=== PATIENT | male | born 1985 | race Caucasian/White ===

== ENCOUNTER 2025-01-11 13:56 | Outpatient (AMB) | payer BC, SELFPAY ==
--- NOTE | 2025-01-11 14:06 | A.OFFVIS_ITS ---
Intake Visit Reasons: Vasectomy Consult Intake Note: New Patient presents for initial visit for vasectomy consult Urology Medications: none Blood Thinner: none Children#2; Expected Children# 0 Boom Boss Required: No Accompanied by: Self / Same As Patient Allergies Penicillins [PENICILLINS] Allergy (Unknown, Unverified 01/11/25 22:17) RASH Medication List - Last Reconciled 01/11/25 by MARK Alvarez No Known Home Meds HPI Comments Details: Isidoro is a very pleasant 39-year-old male patient. He presents to the office today for - vasectomy evaluation Vasectomy evaluation The patient presents for vasectomy consultation.? 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 Patient education has been provided via AUA video, via printed information, risks of failure, recovery time, bruising and potential pain syndrome have been stressed Discussion today focused on the presence of vasectomy and the risks, benefits and alternatives that are available. Vasectomy as intended as a permanent form of control. Printed information and literature was provided to the patient. Overall there is a one in 2500 failure rate. This can occur at any time after vasectomy. Risks were discussed highlighting hematoma, spermatocele, epididymal congestion, development of sperm antibodies, and development of chronic pain estimated between 1-5%. The procedure was reviewed in detail. Anatomical diagrams of the male genitalia were used to explain the location of the vas deferens. The vas deferens will be transected, the proximal end will be cauterized, a metal clip would be applied to separate the 2 vas deferens ends. It was explained the procedure will be done in the office and takes approximately 10-15 minutes. Less common problems that arise with vasectomy include hematoma, bleeding, allergic reaction to anesthetic, epididymal infection, epididymal congestion, scrotal discomfort, spermatic leak, spermatic granuloma and the possibility of antisperm antibodies. He understands these risks and wishes to proceed. Consent was signed at the office today. He also understands that it takes 12 weeks for sperm to fully clear the system. He will need to provide a semen sample at 12 weeks and if this is not clear a 2nd sample at 16 weeks. Medical clearance to stop using protection will only be provided if he satisfies published criteria for sperm clearance. Review of Systems Const All systems reviewed & are unremarkable except as noted in HPI and below Physical Exam Const General: cooperative, healthy appearing, comfortable, no acute distress, well developed, alert and awake Orientation/consciousness: patient oriented x3 Limitations: no limitations HEENT Head: Yes normal to inspection, Yes normocephalic and Yes atraumatic Ears: hearing grossly normal bilaterally Eyes General: appearance normal, both eyes and all related structures Neck Neck: Yes normal visual inspection and Yes trachea midline Chest Chest palpation & inspection: normal inspection of the chest Resp Effort & Inspection: normal respiratory effort and able to speak in complete sentences Cardio Rate: regular rate GI Inspection: Yes normal to inspection General: Yes no CVA tenderness Back/Spine/Pelvis Back: no CVA tenderness Skin General skin exam: no rashes or lesions noted Neuro General: patient oriented x3 Extrem General: Yes normal to inspection Psych Appearance: grossly normal and well kempt Mental Status: mental status grossly normal Speech and movement: Normal speech and movement present and Clear speech present Affect: normal affect Attitude: cooperative Thought process: Normal thought process present Thought content: Normal thought content present Insight: Fair insight present (Psych) Judgement: Fair judgement present (Psych) Assessment & Plan Assessment & Plan (1) Anxiety about health: Code(s): R45.89 - Other symptoms and signs involving emotional state Category: Medical (2) Vasectomy evaluation: Code(s): Z30.09 - Encounter for other general counseling and advice on contraception Category: Medical Plan Vasectomy was discussed in detail; risks and benefits; as noted above. All questions were answered. Consent obtained. We discussed in office semen analysis verses fellows kit; information provided. Prescriptions provided; we discussed importance of taking medications as prescribed. Will schedule for in office vasectomy. Follow-up per doctor's orders; or sooner with any issues, concerns, and or questions. Medications: New tramadol Bring medication to office day of procedure 50 mg PO Q8H 3 days PRN 9 tabs 0RF pain diazepam (Valium) Bringing medication to office day of procedure 2 mg PO ONCE 1 day 2 tabs 0RF anxiety R45.89 - Other symptoms and signs involving emotional state Patient Instructions: The patient had an opportunity to ask questions regarding the treatment plan. All questions were answered. Physical exam, labs, and imaging were discussed and reviewed in detail. As well as risks, benefits, and discussion of treatment choices. No major barriers to understanding were identified. The patient expressed understanding and agreement with the above treatment plan. The patient was made aware they should contact our office by phone for worsening of their current condition, the appearance of new symptoms, or with any questions or concerns. Compliance is encouraged with any medications and follow up testing that is ordered. It is a privilege to be allowed the opportunity to participate in? your urological care.? Again, if you have any questions or concerns If you have any questions or concerns please do not hesitate to contact me. The office is [phone]. This note is constructed using voice recognition software. While every effort has been made to ensure accuracy hotel valet attendant errors may have been included. Yours sincerely, MARK Alvarez Coding Level of Care Code New Pt Level 4 (17503) Diagnoses Anxiety about health R45.89 Vasectomy evaluation Z30.09
--- OUTSIDE RECORDS SUMMARY | 2025-01-11 16:30 | XMS_ITS | Data Portability ---
Author Organization [facility], FP, EHC, OFFICE Address [address] [place] [address] Care Team Providers Care Braiding Machine Operator Name Role Phone RUDY KUMAR General Surgeon FERNY ALEJO Primary Care Provider Assessment Encounter Date Assessment Date Assessment LastModified by Organization Details LastModified Time 07/09/2023 07/09/2023 Patient agreed t o this visit via a secure telehealth platform. Patient understands this is a scheduled visit and the usual procedures with regard to billing and confidentiality apply. Patient was notified that the provider location is home Patient location: home During the visit the patient? s medical history and medical record were reviewed. The patient was notified to call our office for worsening or urgent symptoms. Not available 07/09/2023 10:17:15 10/27/2024 10/27/2024 Patient agreed t o this visit via phone or secure telehealth platform. Patient understands this is a scheduled visit and the usual procedures with regard to billing and confidentiality apply. Patient was notified that the provider location is [facility] Patient location: home During the visit the patient? s medical history and medical record were reviewed. The patient was notified to call our office for worsening or urgent symptoms. Not available 10/27/2024 09:44:54 Plan of Treatment Reminders Order Date Submit Date Provider Last Modified By Organization Details Last Modified Time Details Appointments None recorded. Lab None recorded. Referral general surgeon referral - mass on R chest wall 2023 024 [email or web address] Mcihelle Dobbins MD, [address], [place], [address], 4 16:42:45 gastroenter ologist referral - 38-year-old woke up with sharp pain in his left upper quadrant, went to ER by ambulance, labs wnl, and u/s pending; has had another episode earlier in june. 2022 023 [facility], [address] , [place], [address], 4 08:57:33 Procedures None recorded. Surgeries None recorded. Imaging US, abdomen, complete - 38 yo w ongoing mid to LUQ px for last month [address] [facility] (Imaging), [address] , [place], [address], 3 12:08:35 Medication Orders clindamycin 1 % topical gel 2024 025 [facility] [employer] #[id number], [address], [place], [id number], 5 15:48:18 benzonatate 100 mg capsule [email or web address] [employer] [employer] [facility] #[id number], [address], [place], [id number], 5 14:48:37 albuterol sulfate HFA 90 mcg/actuati on aerosol inhaler 2023 024 [facility] [employer] #[id number], [address], [place], [id number], 4 14:17:42 Patient TargetsNo targets recorded. Patient Instructions Encounter Date Encounter Id Patient Instructions Last Modified By Organization Details Last Modified Time 07/09/2023 [id number] .After a discussion of treatment and medication options, which included consideration of the best practices in medicine, a medical plan was provided. The patient's opinions and concerns were included in this treatment plan and goal. 1. For heartburn - avoid acidic and caffeinated beverages, avoid spicy foods, garlic, onions, smoking, chocolate, and peppermint. 2. Elevate head of bed 45 degrees, And no food intake 4 hrs prior to bedtime. 3. Having lemon w/ water can decrease acidity naturally. Not available 07/09/2023 10:26:12 12/23/2023 [id number] After a discussi on of treatment and medication options, which included consideration of the best practices in medicine, a medical plan was provided. The patient's opinions and concerns were included in this treatment plan and goal. 1. Continue w MVI; VITAMIN D 3 to 1000 I.U. in every day & calcium 1200 mg total in diet. If you can't get it in diet alone then it is ok to do a supplement of 500 mg of calcium per day, but dietary sources are BEST. 2. Work toward Cardiovascular exercise 30 mins 5 x per week. Walking at a fast pace is great. 3. Routine use of sunscreen and bug spray (tick checks when appropriate). 4. Try to work toward a Mediterranean Diet. For more information you can visit [email or web address] 5. Follow up in 1 year for wellness Not available 12/23/2023 14:07:23 Reason for Referral Food Scientist Referral for Abdominal pain 38-year-old woke up with sharp pain in his left upper quadrant, went to ER by ambulance, labs wnl, and u/s pending; has had another episode earlier in june. Referring Physician: Rox Corrigan, Psychiatry, Encounter Date: 07/09/2023 General Surgeon Referral for Lipoma of skin and subcutaneous tissue of trunk mass on R chest wall Referring Physician: Rox Corrigan, Psychiatry, Encounter Date: 12/23/2023 Results Created Date Observation Date Name Description Value Unit Range Abnormal Flag Note LastModifiedBy Organization Detail LastModifiedTime 10/12/19 24 10/13/2023 ANATO OSCAR PATHO LOGY path report Cynthia luis eduardo [facility] [address] [place] [address] Lab Direc tor: Felicia mejia MD Surgi miroslava Patho logy Repor t Acces kiersten #: [id number] FINAL PATHO LOGIC DIAGN OSIS: A. STOMA CH ANTRU M, BIOPS Y: No patho logic abnor malit y. B. ESOPH OTILIA, BIOPS Y: Ama l squam ous mucos a. Danielle ctron icall y Mary d Out By Michael caruso MD By his/h er signlemuel ture above , the patho logis t liste d as charlie skelton the Final Diagn osis certi fies that he/sh e has perso sha revie wed this case and confi rmed or corre cted the diagn osis. CLINI MIROSLAVA HISTO RY Upper abdom inal pain SPECI MENS SUBMI TTED: A: STOMA CH ANTRU M, BIOPS Y B: ESOPH OTILIA, BIOPS Y GROSS DESCR IPTIO N A. STOMA CH ANTRU M, BIOPS Y: Forma matt: 2 fragm ents 0.2 and 0.3 cm, entir cristopher submi tted A1. B. ESOPH OTILIA, BIOPS Y: Forma matt: 2 fragm ents 0.1 cm each, entir cristopher submi tted B1. DN 024 Gross ing Staff : MARIA INES obrien Name: BASIA SAMSON : [birth year] (Age: 38) Sex: M 8 Insti tutio n: [facility] Locat ion: [facility] Date of Opera tion: Date of Acces kiersten: Repor pedro: 12:36 Resul ts To: Reza medina MD, AB Norah Corrigan NP Gupta y Medic al Speci altie s Not Available [facility] (Outpatient) [address] [place], [address], 10/13/2023 22:12:01 02/14/20 24 02/16/2024 ANATO OSCAR PATHO LOGY path report Cooldelfina y [facility] [address] [place] [address] Lab Direc tor: Felicia mejia MD Surgi miroslava Patho logy Repor t Acces kiersten #: [id number] FINAL PATHO LOGIC DIAGN OSIS: SOFT TISSU E, RIGHT ABDOM INAL WALL, EXCIS ION: Lipom a. Danielle ctron icall y Mary d Out By Felicia mejia MD By his/h er signa ture above , the patho logis t liste d as charlie skelton the Final Diagn osis certi fies that he/sh e has perso sha revie wed this case and confi rmed or corre cted the diagn osis. CLINI MIROSLAVA HISTO RY Lipom a of abdom inal wall, mass. SPECI MENS SUBMI TTED: A: SOFT TISSU E, RIGHT ABDOM INAL WALL, EXCIS ION GROSS DESCR IPTIO N SOFT TISSU E, RIGHT ABDOM INAL WALL, EXCIS ION: Recei renea in forma matt is a singl e piece of multi lobul ated yello w soft tissu e which weigh s 8 g and measu res 4.1 x 3.5 x 1 cm. Secti oning revea ls unifo rmly yello w and soft cut surfa kyaw. No focal areas of indur ation , hemor rhage or necro sis is noted . Repre senta tive secti ons in block A1. LT Gross ing Staff : DEBORAH obrien Name: BASIA SAMSON : [birth year] (Age: 38) Sex: M 8 Insti tutio n: [facility] Locat ion: [facility] ATW Date of Opera tion: Date of Acces kiersten: 024 Repor pedro: 2023 16:05 Resul ts To: Rudy conteh MS, BS Norah Corrigan DESKTOP OPERATOR Not Available [facility] (Outpatient) [address] [place], [address], 02/16/2024 16:52:22 12/22/19 25 12/21/2024 CBC WBC 4.60 K/? ? ?L 4.23-9 .07 Not Available [address], [address], 12/21/2024 10:17:55 12/22/1912/21/2024 CBC RBC 5.35 M/? ? ?L 4.63-6 .08 Not Available [address], [address], 12/21/2024 10:17:55 12/22/1912/21/2024 CBC HGB 15.6 g/dL 13.7-1 7.5 Not Available [address], [address], 12/21/2024 10:17:55 12/22/1912/21/2024 CBC HCT 46.3 % 40.1-5 1.0 Not Available [address], [address], 12/21/2024 10:17:55 12/22/1912/21/2024 CBC MCV 86.5 fL 79.0-9 2.2 Not Available [address], [address], 12/21/2024 10:17:55 12/22/1912/21/2024 CBC MCH 29.2 pg 25.7-3 2.2 Not Available [address], [address], 12/21/2024 10:17:55 12/22/1912/21/2024 CBC MCHC 33.7 g/dL 32.3-3 6.5 Not Available [address], [address], 12/21/2024 10:17:55 12/22/1912/21/2024 CBC plt 229 K/? ? ?L 163-33 7 Not Available [address], [address], 12/21/2024 10:17:55 12/22/19 25 12/21/2024 CBC MPV 10.6 fL 9.4-12 .4 Not Available [address], [address], 12/21/2024 10:17:55 12/22/19 25 12/21/2024 CBC neut% 55.0 % 34.0-6 7.9 Not Available [address], [address], 12/21/2024 10:17:55 12/22/19 25 12/21/2024 CBC neut# 2.53 1.78-5 .38 Not Available [address], [address], 12/21/2024 10:17:55 12/22/19 25 12/21/2024 CBC lymph % 23.9 % 21.8-5 3.1 Not Available [address], [address], 12/21/2024 10:17:55 12/22/19 25 12/21/2024 CBC lymph # 1.10 K/? ? ?L 1.32-3 .57 low Not Available [address], [address], 12/21/2024 10:17:55 12/22/1912/21/2024 CBC mono% 10.7 % 5.3-12 .2 Not Available [address], [address], 12/21/2024 10:17:55 12/22/19 25 12/21/2024 CBC mono# 0.49 0.30-0 .82 Not Available [address], [address], 12/21/2024 10:17:55 12/22/19 25 12/21/2024 CBC eo% 8.9 % 0.8-7. 0 high Not Available [address], [address], 12/21/2024 10:17:55 12/22/19 25 12/21/2024 CBC eo# 0.41 0.04-0 .54 Not Available [address], [address], 12/21/2024 10:17:55 12/22/19 25 12/21/2024 CBC baso% 1.1 % 0.2-1. 2 Not Available [address], [address], 12/21/2024 10:17:55 12/22/1912/21/2024 CBC baso# 0.05 0.00-0 .08 Not Available [address], [address], 12/21/2024 10:17:55 12/22/1912/21/2024 CBC RDW-CV 12.5 % 11.6-1 4.4 Not Available [address], [address], 12/21/2024 10:17:55 12/22/1912/21/2024 CBC Ig% 0.400 % 0.000- 1.500 Ig % >0.5 Indic ates possi ble Left Shift Not Available [address], [address], 12/21/2024 10:17:55 12/22/1912/21/2024 CBC Ig# 0.020 0.000- 0.093 Not Available [address], [address], 12/21/2024 10:17:55 12/22/1912/21/2024 CBC NRBC% 0.0 % 0.0-0. 2 Not Available [address], [address], 12/21/2024 10:17:55 12/22/1912/21/2024 CBC NRBC# 0.000 0.000- 0.012 Not Available [address], [address], 12/21/2024 10:17:55 12/22/1912/25/2024 BASIC METAB OLIC PANEL glucose 93 mg/dL 70-100 Not Available [address], [address], 12/25/2024 11:33:50 12/22/19 25 12/25/2024 BASIC METAB OLIC PANEL BUN 19 mg/dL 7-18 high Not Available [address], [address], 12/25/2024 11:33:50 12/22/1912/25/2024 BASIC METAB OLIC PANEL creatinine 1.1 mg/dL 0.8-1. 3 Not Available [address], [address], 12/25/2024 11:33:50 12/22/19 25 12/25/2024 BASIC METAB OLIC PANEL B/C 17.3 ratio Not Available [address], [address], 12/25/2024 11:33:50 12/22/1912/25/2024 BASIC METAB OLIC PANEL GFR >=60ML /MIN mL/mi n normal >=60m L/min - Ama l or midly reduc ed <60mL /min- Decre ased kidne y funct ion <15mL /min - Kidne y failu re [facility] calcu lates estim ated Glome rular Filtr ation Rate (eGFR ) using the Chron ic Kidne y Disea se Epide miolo gy Colla borat ion (CKD- EPI) Equat ion (Orville conteh et. al 2020) as recom lyle d by the Natio nal Kidne y Found ation . eGFR is based on age, serum creat inine , and sex. CKD-E PI does not calcu late eGFR by race, does not apply to child mirella (age <18 years ), and shoul d not be used in pregn karin. Not Available [address], [address], 12/25/2024 11:33:50 12/22/19 25 12/25/2024 BASIC METAB OLIC PANEL sodium 141 mmol/ L 136-14 5 Not Available [address], [address], 12/25/2024 11:33:50 12/22/19 25 12/25/2024 BASIC METAB OLIC PANEL potassium 4.6 mmol/ L 3.5-5. 1 Not Available [address], [address], 12/25/2024 11:33:50 12/22/19 25 12/25/2024 BASIC METAB OLIC PANEL chloride 104 mmol/ L 96-107 Not Available [address], [address], 12/25/2024 11:33:50 12/22/19 25 12/25/2024 BASIC METAB OLIC PANEL anion gap 12.6 5.0-15 .0 Not Available [address], [address], 12/25/2024 11:33:50 12/22/19 25 12/25/2024 BASIC METAB OLIC PANEL CO2 24 mmol/ L 21-32 Not Available [address], [address], 12/25/2024 11:33:50 12/22/19 25 12/25/2024 BASIC METAB OLIC PANEL calcium 8.9 mg/dL 8.5-10 .3 Not Available [address], [address], 12/25/2024 11:33:50 12/22/1912/25/2024 LIPID PANEL cholesterol 222 mg/dL <200 mg/dl Jules able 200-2 39 mg/dl Borde rline High >240 mg/dl High Not Available [address], [address], 12/25/2024 11:33:51 12/22/1912/25/2024 LIPID PANEL triglyceride s 59 mg/dL <150 mg/dL Ama l 150-1 99 mg/dL Borde rline High 200-4 99 mg/dL High >500 mg/dL Very High Not Available [address], [address], 12/25/2024 11:33:51 12/22/1912/25/2024 LIPID PANEL direct HDL 57 mg/dL <40 mg/dl - Major Risk for CHD >60 mg/dl - Negat paul Risk for CHD Not Available [address], [address], 12/25/2024 11:33:51 12/22/1912/25/2024 LDL - CALCU LATED LDL - calculated 153 RISK CATEG ORY LDL GOAL _ CHD or CHD Risk Equiv alent s <100 mg/dl (10-y ear risk >20%) 2+ Risk Facto rs <130 mg/dl (10-y ear risk <= 20%) 0-1 Risk Facto r? <160 mg/dl ? Almos t all peopl e with 0-1 risk facto r have a 10 year risk <10%, thus 10 year risk asses ment in peopl e with 0-1 risk facto r is not neces colton. Not Available [address], [address], 12/25/2024 11:33:52 07/13/20 23 07/13/2023 US, abdom en, compl ete CLINIC AL HISTOR Y: Abdome n pain TECHNI QUE: 2D sonogr aphy of the abdome n perfor med. COMPAR ANGELLA: None. FINDIN GS: The aorta and IVC are normal sized. The liver is normal in echote xture. There are no solid liver masses or intrah epatic duct dilata tion. The gallbl adder is thin-w alled. There are no gallst ones and there is no perich olecys tic fluid. The patien t is not focall y tender during examin ation of the gallbl adder. Common duct: 3 mm Right kidney 10.8 x 4.6 cm. The right kidney has no visual ized stones , solid masses , or hydron ephros is. Left kidney is 4.7 cm. The left kidney has no visual ized stones , solid masses , or hydron ephros is. There is no ascite s. The visual ized portio ns of the pancre as are normal . There is some limita tion due to overly ing bowel gas. Spleen 11.2 cm. The spleen is unrema rkable . IMPRES KIERSTEN: Unrema rkable comple te abdomi nal ultras ound. Readin g Physic hillary: Korey Bernal [facility]) [address], [place], [address], 07/19/2023 11:45:35 Result Notes None recorded. Procedures Surgical History Date Name Laterality Status Provider Name and Address Organization Details Recorded Time 4 Bryson - EGD completed Reza Massey MD [address] [place] [address], [id number] 10/12/2023 11:19:25 Imaging Results None recorded. Procedure Notes None recorded. Medical Equipment None Reported. Allergies Allergen ID Allergen Name Allergen Category Reaction Reaction Severity Criticality Documentation Date Start Date Code Code System Note Provider Name and Address Organization Details Recorded Time 993109 Product containin g penicilli n (product) medicatio n rash Not available Not available 10/12/2023 68054 8001 SNOMED MICHELE Jo, [facility] 4 09:04:10 Medications Name Sig Start Date Stop Date Status Note LastModified by Organization Details LastModified Time cetirizin e 10 mg tablet Take 1 tablet every day by oral route. active seasonal ly Not Available Not Available Not Available prednison e 20 mg tablet 05/02 completed finished 04-28-18 Not Available Not Available Not Available fexofenad ine 180 mg tablet Take 1 tablet every day by oral route. 04/30 completed not currentl y using 01/15/20 Not Available Not Available Not Available omeprazol e 40 mg capsule,d elayed release Take 1 capsule twice a day by oral route for 30 days. 06/29 completed Not Available Not Available Not Available triamcino lone acetonide 0.1 % topical cream TROY THIN LAYER EXT AA BID FOR 14 DAYS 12/26 completed pt not taking Not Available Not Available Not Available clindamyc in 1 % topical gel APPLY THIN LAYER TOPICALL Y TO THE AFFECTED AREA TWICE DAILY 12/26 completed not using 12/26/24 Not Available Not Available Not Available benzonata te 100 mg capsule TAKE 1 TO 2 CAPSULES BY MOUTH THREE TIMES DAILY NEEDED FOR COUGH 12/26 completed not taking 12/26/24 ds Not Available Not Available Not Available flunisoli de 25 mcg (0.025 %) nasal spray [place] Mar 2 sprays twice a day by intranas al route for 30 days. 06/16 completed Not Available Not Available Not Available omeprazol e 20 mg capsule,d elayed release take 1 capsule by mouth once daily 12/26 completed PRN Not taking 07/09/23 SD Not Available Not Available Not Available monteluka st 10 mg tablet TAKE 1 TABLET BY MOUTH ONCE A DAY 04/30 completed irregula rly 01/15/20 Not Available Not Available Not Available albuterol sulfate HFA 90 mcg/actua tion aerosol inhaler INHALE 2 PUFFS BY MOUTH EVERY 4 HOURS active Not Available Not Available No t Available piroxicam 20 mg capsule TAKE ONE CAPSULE BY MOUTH EVERY DAY WITH FOOD NEEDED FOR PAIN active Not Available Not Available No t Available fluticaso ne propionat e 50 mcg/actua tion nasal spray,gianluca pension [place] 1 spray every day by intranas al route for 30 days. 04/30 completed Has, does not use 10/18/18 Not Available Not Available Not Available doxycycli ne hyclate 100 mg tablet 04/23 completed Not Available Not Available Not Available Flovent HFA 110 mcg/actua tion aerosol inhaler Inhale 1 puff twice a day by inhalati on route. 10/27 completed no longer using 0 Not Available Not Available Not Available Virginia-D 24 Hour 180 mg-240 mg tablet,ex tended release TK 1 T PO D PRN 10/18 completed Not Available Not Available Not Available multivita min active Not Available Not Available Not Available omeprazol e 20 mg tablet,de layed release Take 1 tablet every day by oral route before meals for 14 days. 05/31 completed Not Available Not Available Not Available ProChambe r 10/18 completed Not Available Not Available Not Available Afluria 3786-9450 (PF) 45 mcg(15 mcg x 3)/0.5 mL intramusc ular syringe 12/02 completed Not Available Not Available Not Available Fish Oil 1,000 mg (120 mg-180 mg) capsule Take by oral route. active Not Available Not Available No t Available Afluria 8863-5875 (PF) 45 mcg(15 mcg x 3)/0.5 mL intramusc ular syringe inject 0.5 millilit er intramus cularly 12/07 completed Not Available Not Available Not Available Flucelvax Quad (PF) 60 mcg (15 mcg x 4)/0.5 mL IM syringe inject 0.5 millilit ers intramus cularly 01/14 completed Not Available Not Available Not Available Vitals None Recorded Social History Question Answer Notes LastModified by Organizat ion Details LastModified Time Do You Wear A Helmet When Biking? No N/a Information not available 08/05/2015 What Is Your Level Of Caffeine Consumption? Moderate 1 Cup Of Coffee Daily Information not available 01/24/2014 How Much Tobacco Do You Chew? None Information not available 08/05/2015 What Type Of Diet Are You Following? REGULAR Information not available 01/24/2014 Which Illicit Or Recreational Drugs Have You Used? Denies Information not available 10/03/2014 How Many Days In The Past Year Have You Had A Heavy Drinking Consumption (4+ Female, 5+ Male)? 1 [email or web address] Information not available 10/18/2018 Are There Any Guns Present In Your Home? No Information not available 08/05/2015 Do You Use Insect Repellent Routinely? No Information not available 12/23/2023 Live Alone Or With Others? With Others Information not available 01/24/2014 Patient Has Health Care Proxy Signed And In Chart Yes Next Of Kin: Naya Farmer [email or web address] Information not available 10/19/2018 Marital Status Naya Informatio n not available 01/24/2014 Mosquito Repellent Used Routinely Yes Information not available 01/24/2014 What Was The Date Of Your Most Recent Tobacco Screening? 12/26/2024 [email or web address] Information not available 12/26/2024 How Many Children Do You Have? 1 Curtis 09/12/17 Information not available 04/23/2017 Do You Use Your Seat Belt Or Car Seat Routinely? Yes Information not available 12/23/2023 Seat Belts Used Routinely Yes Information not available 01/24/2014 Are You Sexually Active? Yes Information not available 04/23/2017 Smoke Alarm In Home Yes Information not available 01/24/2014 Do You Have Smoke And Carbon Monoxide Detectors In Your Home? Yes Information not available 12/23/2023 Are You Passively Exposed To Smoke? No Information not available 12/23/2023 How Much Tobacco Do You Smoke? No Information not available 10/03/2014 General Stress Level Medium Information not available 10/03/2014 Do You Use Sunscreen Routinely? Yes Information not available 01/24/2014 Sex: Male Functional Status Question Answer Note LastModified by Organizat ion Details LastModified Time What is your level of alcohol consumption? Moderate x4-6 drink/we ek Information not available 01/24/2014 Do you or have you ever used smokeless tobacco? Never used smokeless tobacco [email or web address] Information not available 11/25/2020 What is your occupation? [employer] work Information not available 04/23/2017 Do you or have you ever used e-cigarettes or vape? Never used electronic cigarettes [email or web address] Information not available 11/25/2020 What is your exercise level? Occasional Information not available 10/03/2014 Mental Status None recorded. Family History Relationship Description Onset Age of this Age Resolved Age Notes LastModified by Organization Details LastModified Time Paternal Grandfather Malignant neoplastic disease [email or web address] Not available 2014 11:30:37 Father Family illness [email or web address] Not available 2014 11:30:37 Mother Diabetes mellitus [email or web address] Not available 2014 11:30:37 Mother Malignant lymphoma [email or web address] Not available 2014 11:30:37 Paternal Uncle Malignant neoplastic disease [email or web address] Not available 2014 11:30:37 Sister Congestive heart failure 35 [email or web address] Not available 12/08 14:45:48 Notes:Sister a/w. No colon o r breast ca. No CAD Mother:Marginal B-Cell Lymphoma, late thirties Diabetes, age 47 Pat grpa Bladder cancer, age 71 smoker Mothers Aunt: Bladder cancer, twice, unsure of age Mothers Brother: Bladder cancer, early 50's smoked Mothers Sister and uncle: Diabetes, early 50'a Medical History Condition Response Allergies Y Past Encounters Encounter ID Performer Location Encounter Start Date Encounter Closed Date Diagnosis/Indication Diagnosis SNOMED-CT Code Diagnosis ICD10 Code Diagnosis Note [id number] MARK Mcgraw, [facility], OFFICE [address] [place] [id number] 01/24/2014 14:23:08 01/24/2014 15:17:37 [id number] Daisy LUU, [facility], OFFICE [address] [place] [phone] 03/01/2014 14:39:45 03/01/2014 17:02:15 [id number] MARK Mcgraw, [facility], OFFICE [address] [place] [id number] 03/27/2014 11:36:09 03/27/2014 11:57:45 [id number] MARK Mcgraw, [facility], OFFICE [address] [place] [id number] 05/17/2014 12:34:22 05/17/2014 14:07:58 [id number] MARK Mcgraw [facility], OFFICE [address] [place] [id number] 05/30/2014 16:41:15 06/01/2014 10:56:53 [id number] Robin Ruiz MD Sports Medicine, [facility] [address] [facility] [place] [address] 10/03/2014 10:23:13 10/03/2014 13:37:36 [id number] Jacques hCaudhary , PT Physical Therapy, [facility] [address] [place] [address] 10/10/2014 14:42:30 10/11/2014 14:06:20 [id number] Jacques Chaudhary , PT Physical Therapy, [facility] [address] [place] [address] 10/29/2014 15:56:32 10/31/2014 07:27:35 [id number] Masoud Slaughter MD , [facility], OFFICE [address] [facility] [place] [facility] [place] [address] 11/05/2014 14:37:51 11/05/2014 15:47:17 [id number] Daisy LUU, [facility], OFFICE [address] [facility] [place] [facility] [place] [address] 08/05/2015 09:57:22 08/05/2015 10:47:19 [id number] Masoud Slaughter MD , [facility], OFFICE [address] [facility] [address] [place] [address] 04/21/2016 13:37:54 04/21/2016 14:09:49 [id number] CHRIS McgrawP-ANY , [facility], OFFICE [address] [facility] [place] [facility] [place] [address] 12/02/2016 10:48:34 12/02/2016 11:39:41 [id number] MD JUS Ortega, [facility], OFFICE [address] [facility] [place] [facility] [place] [address] 04/23/2017 08:32:40 04/23/2017 09:27:18 [id number] Syl Shannon NP , [facility], OFFICE [address] [facility] [place] [facility] [place] [address] 12/07/2017 15:13:16 12/07/2017 17:47:41 [id number] Daisy LUU, [facility], OFFICE [address] [facility] [place] [facility] [place] [address] 04/28/2018 07:53:34 04/28/2018 09:48:43 [id number] Reza Cadet MD , [facility], OFFICE [address] [facility] [place] [facility] [place] [address] 05/02/2018 17:13:15 05/03/2018 09:13:50 [id number] Reza Cadet MD , [facility], OFFICE [address] [facility] [place] [facility] [place] [address] 10/18/2018 15:41:55 10/18/2018 16:34:42 [id number] Reza Cadet MD , [facility], OFFICE [address] [facility] [place] [facility] [place] [address] 01/15/2020 09:36:55 01/16/2020 09:05:07 [id number] Reza Cadet MD , [facility], OFFICE [address] [facility] [place] [facility] [place] [address] 04/30/2020 13:41:26 05/02/2020 08:05:50 [id number] Masoud Slaughter MD , [facility], OFFICE [address] [facility] [place] [facility] [place] [address] 11/25/2020 11:53:27 11/27/2020 16:07:09 [id number] Jamila Boles Ms, PT Physical Therapy, [facility] [address] [facility] [place] [facility] [place] [address] 12/19/2020 07:27:35 12/19/2020 10:16:46 [id number] Jamila Bloes Ms, PT Physical Therapy, [facility] [address] [facility] [place] [facility] [place] [address] 12/25/2020 11:30:54 12/25/2020 13:27:36 [id number] Jamila Boles Ms, PT Physical Therapy, [facility] [address] [facility] [place] [facility] [place] [address] 01/02/2021 11:56:09 01/03/2021 07:30:03 [id number] Reza Cadet MD FP, [facility], OFFICE [address] [facility] [place] [facility] [place] [address] 10/27/2021 14:22:58 10/27/2021 15:09:15 [id number] Reza Cadet MD , [facility], OFFICE [address] [place] [address] 10/29/2022 13:21:27 10/29/2022 14:01:02 [id number] Reza Cadet MD , [facility], OFFICE [address] [place] [address] 07/09/2023 08:29:52 07/13/2023 08:52:47 [id number] Reza Massey MD Endoscopy , [address] [address] 10/12/2023 08:49:48 10/12/2023 13:25:36 [id number] Reza Cadet MD , [facility], OFFICE [address] [place] [address] 12/23/2023 13:19:52 12/23/2023 14:12:29 [id number] TEJA BENTON PA-C , [facility], OFFICE [address] [place] [address] 08/08/2024 13:55:09 08/08/2024 16:56:13 [id number] Rox Corrigan NP , [facility], OFFICE [address] [place] [address] 10/27/2024 09:40:37 10/27/2024 12:09:16 [id number] Masoud Slaughter MD , [facility], OFFICE [address] [place] [address] 12/26/2024 14:14:12 12/26/2024 16:43:55 Health Concerns Section Related Observation LastModified by Organization Detai ls LastModified Time None Recorded Concern Status LastModified by Organization Details LastModified Time None Recorded Advance Directives Directive None Recorded Payers Encounter Date Sequence Insurance Name Policy Number Policy Cash Covered Member ID Cash Member ID Guarantor Name 07/09/2023 1 [employer] (PPO) [id number] Isidoro Farmer [id number] Isidoro Farmer 12/23/2023 1 [employer] (PPO) [id number] Isidoro Farmer [id number] Isidoro Farmer 08/08/2024 1 SURAJ (PPO) [id number] Isidoro Farmer [id number] Isidoro Farmer 10/27/2024 1 SURAJ (PPO) [id number] Isidoro Farmer [id number] Isidoro Farmer 12/26/2024 1 SURAJ (PPO) [id number] Isidoro Farmer [id number] Isidoro Farmer
== END 2025-01-11 14:54 | disposition home or self-care (01) ==
LOC: HO.HUSH 13:56
PROVIDERS: Visit Provider Nurse Practitioner Family
DX: R45.89 Other symptoms and signs involving emotional state (principal); Z30.09 Encounter for other general counseling and advice on contraception
CPT/HCPCS: 99204

== ENCOUNTER 2025-04-25 15:00 | Outpatient (AMB) | payer BC, SELFPAY ==
--- NOTE | 2025-04-25 15:06 | A.OFFVIS_ITS ---
Intake Visit Reasons: vasectomy Intake Note: New Patient presents for initial visit for vasectomy Urology Medications: none Blood Thinner: none Children#2; Expected Children# 0 Medical Care Administrator Required: No Accompanied by: Self / Same As Patient Allergies Penicillins (PENICILLINS) Allergy (Unknown, Verified 04/25/25 15:07) RASH HPI Comments Details: Isidoro is a very pleasant 39-year-old male patient. He presents to the office today for - vasectomy procedure Vasectomy procedure The patient presents for vasectomy procedure.? He is currently He has fathered 2 children, with a single partner The youngest child is 5 years old His partner is aware and permissive for a vasectomy Current form of control is her months Current employment is a corporate planning manager at [employer] Procedures Vasectomy Details: Preoperative diagnosis: Anxiety regarding Postoperative diagnosis: Anxiety regarding unplanned Procedure: Bilateral vasectomy Informed consent had been completed. Preoperative and postoperative instructions were provided to the patient. The patient has transportation home identified at the completion of the procedure. Anti-anxiolytic prescription medication had been taken after consent verification and all questions answered. A limited amount of pain medication was also provided. The penis was elevated using a rubber band that was attached to the patient's shirt. Both vasa were palpated through the skin using a 3 finger technique and the penoscrotal junction was prepped with Betadine. After Betadine application the left vas was elevated using a 3 finger grasping technique. 1% lidocaine was used to create a subdermal bubble. Further anesthetic was then advanced using the 25-gauge needle along the vasa in a proximal fashion. Approximately 2 minutes were allowed to for local anesthetic uptake. Using the sharp spreading instrument the scrotal skin was spread longitudinally in line with the vasa until the subdermal layer had been divided. The vasa was then elevated from the scrotum using a ring clamp. Care was taken to elevate the superior portion of the vasa by rotating the ring clamp in a caudad direction. The battery powered cautery was used to divide the vasal sheath in a longitudinal direction on the exposed vasa and to strip the vasal sheath from the vasa. The sharp spreading instrument was used to further expose the vas within the vasal sheath. A 2nd narrower ring clamp was placed on the exposed vas and used to lift the vas from the vasal sheath. The cautery was used to divide vasal attachments and allow full exposure of a small loop of vasa. The sharp spreading instrument was then used to create a tunnel under the vasa and spread to allow the blood vessels of the vasa to retract from the vasa. A mosquito clamp was placed on the proximal portion of the vas. The battery- powered cautery was used to make a partial division in the proximal vas and then inserted in order to cauterize the proximal end of the vas. This was then cut and allowed to retract into the vasal sheath. The mosquito was then used to twist the vasa 180 degrees creating a fascial interposition as the proximal portion of the vas retracted in the vasal sheath. Using a 4-0 chromic suture the fascial interposition was sutured closed. The distal portion of the vas was then cut in order to obtain a segment of vasa. An open distal vas is preferred for minimizing postprocedure pain. The vasa were allowed to retract back into the scrotum. A small snap was then used to approximate the skin edges and allow hemostasis without placement of a suture. A similar procedure was repeated on the right side. He tolerated the procedure well. Triple antibiotic was applied. A gauze was applied. An ice pack was applied to assist with minimizing swelling. Postoperati ve instructions were confirmed. He understands the need to continue to use control methods. A semen sample should be brought for inspection under the microscope in 10-12 weeks. CPT 54799 Vasectomy performed by: Freddy Kemp Time out checklist: patient, procedure, site marked/identified, positioning of patient, supplies available, allergies confirmed and team agrees on procedure Anesthetic used: Lidocaine 1.0% with epinephrine Specimens: vas segments not sent to pathology 88846 - Vasectomy Office Meds lidocaine (PF) 10 mg/mL (1 %) injection solution Performing Provider: Freddy Kemp MD Performing Location: [facility] [place] [facility] Administered by: Kathleen Garay RN on 04/25/25 15:07 Dose Route Admin Location Dispensed Lot Number Expiration Date NDC Byproducts Pump Operator 2 mL Infiltration 10 mL Total Dispensed Waste 10 mL 0 % Assessment & Plan Assessment & Plan (1) Vasectomy evaluation: Code(s): Z30.09 - Encounter for other general counseling and advice on contraception Category: Medical (2) Anxiety about health: Code(s): R45.89 - Other symptoms and signs involving emotional state Category: Medical Plan Twelve week follow-up check semen analysis Orders: Orders AMB Vasectomy Today R45.89 - Other symptoms and signs involving emotional state Patient Instructions: This note is constructed using voice recognition software. While every effort has been made to ensure accuracy flatware maker errors may have been included. Imaging studies, laboratory and physical exam results were discussed and reviewed in detail. No major barriers to patient understanding were identified. An opportunity to ask questions regarding the treatment plan was provided. All questions were answered. The patient expressed understanding and agreement with the above treatment plan. The patient is aware they should contact our office by phone for worsening of their current condition or the appearance of new urologic symptoms. Compliance is encouraged with any medications and followup testing that is ordered. It is a privilege to participate in the urologic care of your patient. If you have any questions or concerns regarding treatment for the above conditions, or other urologic issues, please do not hesitate to contact me. The office telephone contact is [phone]. Sincerely, Dr Freddy Kemp MD, [facility] - Urology Compassionate Specialist Care for the Genitourinary System Coding Level of Care Code Procedure Only Diagnoses Vasectomy evaluation Z30.09 Anxiety about health R45.89 CPT Codes Office Procedure - CPT: 38079 - Vasectomy ([id number])
--- OUTSIDE RECORDS SUMMARY | 2025-04-25 18:33 | XMS_ITS | Encounter Summary ---
Author Organization [facility] Address [address] [place] [address] Phone Care Team Providers Care Quahogger Name Role Phone Pcp, Unknown Primary Care Provider Rox Heaton W[employer]ANT SUPERVISOR Primary Care Provider [phone] Encounter Details Date Type Department Care Team (Latest Contact Info) Description 09/09/2023 Transcribe Orders Virtual Department [address] [place] [address] Krissy Clay PA [address] [place] [address] Gastroesophageal reflux disease, unspecified whether esophagitis present (Primary Dx); Generalized abdominal pain Social History Tobacco Use Types Packs/Day Years Used Date Smoking Tobacco: Never Assessed Education Answer Date Recorded Are you interested in more education? Not on wei e 07/07/2023 Are you concerned about learning? Not on file 07/07/2023 No 07/07/2023 No 07/07/2023 Digital Access Answer Date Recorded No 07/07/2023 No 07/07/2023 Reliable internet access at home? Not on file 07/07/2023 Device with a working camera? Not on file Intimate Partner Violence Answer Date R ecorded Are you denied basic needs s uch as food, clothing, or medical care? No 07/07/2023 In the past 12 months have y ou been in a relationship with a person who hurts, threatens, or tries to control you? No 07/07/2023 Are you denied basic needs s uch as food, clothing, or medical care? No 07/07/2023 In the past 12 months have y ou been in a relationship with a person who hurts, threatens, or tries to control you? No 07/07/2023 Sex and Gender Information Value Date Recorded Sex Assigned at Not on file Legal Sex Male 10:28 PM EDT Gender Identity Not on file Sexual Orientation Not on file documented as of this encounter Plan of Treatment Not on file documented as of this encounter Results * FL UGI SERIES DOUBLE CONTRAST AND SMALL BOWEL (09/23/2023 9:57 AM EST) Anatomical Region Laterality Modality Abdomen Computed Radiogr aphy 09/23/2023 3:09 PM EST Impressions 09/23/2023 5:00 PM EST 1. No fluoroscopic evidence of a hiatal hernia, as clinically questioned. 2. Small duodenal diverticulum. 3. Small bowel transit time within normal limits. FLUOROSCOPY TIME: 2 minutes 37 seconds NUMBER OF IMAGES: 125 ATTESTATION: I, Freda Breaux as teaching physician, have reviewed the images for this case and if necessary edited the report originally created by Rodney Cohen. Narrative 09/23/2023 5:00 PM EST DOUBLE CONTRAST UPPER GI SERIES WITH SMALL BOWEL FOLLOW THROUGH HISTORY: Epigastric pain. Gastroesophageal reflux disease. Rule out hiatal hernia. COMPARISON: None. OPERATORS: Rodney Cohen SUPERVISING PHYSICIAN: Freda Breaux TECHNIQUE: Double contrast upper GI series with small bowel follow-through was performed with sodium carbonate and barium. FINDINGS: Calender Machine Operator Helper view of the abdomen demonstrates a nonobstructive, nonspecific bowel gas pattern. ESOPHAGUS: Motility: Within normal limits. Mucosa: No gross mass or ulceration demonstrated during this examination. Distensibility: Normal. GASTROESOPHAGEAL JUNCTION: No evidence of a hiatal hernia despite a prone Valsalva maneuver. TABLET: No impedance to the passage of a 13 mm barium tablet into the stomach. GASTROESOPHAGEAL REFLUX: None observed. STOMACH: Normally distensible and demonstrates normal contours and mucosal pattern. DUODENUM: Bulb and sweep are normal. There is an outpouching of contrast demonstrated in the horizontal portion of the duodenal sweep suggestive of a small duodenal diverticulum. Duodenal-jejunal junction is in the normal expected position. SMALL BOWEL FOLLOW THROUGH: Small bowel loops are normal in caliber and distribution. Spot compression views of the terminal ileum are normal. The transit time was normal. Ascending colon begins to fill with barium at approximately 50 minutes post initial ingestion of barium. Procedure Note Freda Breaux MD - 09/23/2023 DOUBLE CONTRAST UPPER GI SERIES WITH SMALL BOWEL FOLLOW THROUGH HISTORY: Epigastric pain. Gastroesophageal reflux disease. Rule out hiatalhernia. COMPARISON: None. OPERATORS: Rodney Cohen SUPERVISING PHYSICIAN: Freda Breaux TECHNIQUE: Double contrast upper GI series with small bowel follow-throughwas performed with sodium carbonate and barium. FINDINGS: Calender Machine Operator Helper view of the abdomen demonstrates a nonobstructive, nonspecific bowelgas pattern. ESOPHAGUS: Motility: Within normal limits. Mucosa: No gross mass or ulceration demonstrated during thisexamination. Distensibility: Normal. GASTROESOPHAGEAL JUNCTION: No evidence of a hiatal hernia despite a proneValsalva maneuver. TABLET: No impedance to the passage of a 13 mm barium tablet into thestomach. GASTROESOPHAGEAL REFLUX: None observed. STOMACH: Normally distensible and demonstrates normal contours and mucosalpattern. DUODENUM: Bulb and sweep are normal. There is an outpouching of contrastdemonstrated in the horizontal portion of the duodenal sweep suggestive ofa small duodenal diverticulum. Duodenal-jejunal junction is in the normalexpected position. SMALL BOWEL FOLLOW THROUGH: Small bowel loops are normal in caliber and distribution. Spot compression views of the terminal ileum are normal. The transit time was normal. Ascending colon begins to fill with bariumat approximately 50 minutes post initial ingestion of barium. IMPRESSION: 1. No fluoroscopic evidence of a hiatal hernia, as clinicallyquestioned. 2. Small duodenal diverticulum. 3. Small bowel transit time within normal limits. FLUOROSCOPY TIME: 2 minutes 37 seconds NUMBER OF IMAGES: 125 ATTESTATION: I, Freda Breaux as teaching physician, have reviewed theimages for this case and if necessary edited the report originally createdby Rodney Cohen. Krissy [facility] Final Resul t documented in this encounter Visit Diagnoses Diagnosis Gastroesophageal reflux disease, unspecified whether esophagitis present- Primary Generalized abdominal pain Abdominal pain, generalized Gastroesophageal reflux disease, unspecified whether esophagitis present Generalized abdominal pain Abdominal pain, generalized documented in this encounter Care Teams Quahogger Relationship Specialty Start Date End Date Pcp, Unknown PCP - General 07/07/23 10/11/23 Rox Corrigan NP [address] [place] [address] [email or web address] PCP - General Nurse Practitioner 10/12/23 documented as of this encounter Additional Source Comments The information contained in this document represents components of the legal health record. It is not the complete legal health record.[facility]
--- OUTSIDE RECORDS SUMMARY | 2025-04-25 18:33 | XMS_ITS | Clinical Summary ---
Author Organization [facility] Address [address] [place] [address] Phone Care Team Providers Care Spring Crater Name Role Phone Rox Corrigan NP Primary Care Provider [phone] Allergies Active Allergy Reactions Criticality Noted Date Comments Amoxicillin Rash Low 07/07/2023 And breathing issues as infant Penicillins Rash Low 07/07/2023 And breathing issues Medications cetirizine (ZYRTEC) 10 MG tablet Take 10 mg by mouth as needed for allergies. Active Social History Tobacco Use Types Packs/Day Years Used Date Smoking Tobacco: Never Smokeless Tobacco: Never Tobacco Cessation:Counseling Given: Not Answered Education Answer Date Recorded Are you interested [...] on file Sexual Orientation Not on file Last Filed Vital Signs Vital Sign Reading Time Taken Comments Blood Pressure 118/68 02/01/2024 8:26 AM EDT Pulse 78 02/01/2024 8:26 AM EDT Temperature 36.5 C (97.7 F) 02/01/2024 8:26 AM EDT Respiratory Rate 16 07/07/2023 2:23 AM EST Oxygen Saturation 98% 02/01/2024 8:26 AM EDT Inhaled Oxygen Concentration - - Weight 85.2 kg (187 lb 12.8 oz) 02/01/2024 8:26 AM EDT Height - - Body Mass Index - - Plan of Treatment Health Maintenance Due Date Last Done Comments Adult Td,Tdap Booster 1984 LIPID PANEL 1984 DEPRESSION SCREENING 1996 HEPATITIS C SCREENING 2002 HIV ONE-TIME SCREENING (18-6 5 YEARS) 2002 INFLUENZA VACCINE (#1) 2025 COVID-19 VACCINE (2023-2 5 season) 2025 SMOKING STATUS SCREENING (On ce After 26 Yrs) Completed 02/14/2024 HEPATITIS A VACCINES Aged Out No long er eligible based on patient's age to complete this topic HIB VACCINES Aged Out No longer eligi ble based on patient's age to complete this topic MENINGOCOCCAL VACCINES (ACWY) Aged Out No longer eligible based on patient's age to complete this topic MENINGOCOCCAL VACCINES (B) Aged Out N o longer eligible based on patient's age to complete this topic PNEUMOCOCCAL VACCINES (0-49 years) Aged Out No longer eligible based on patient's age to complete this topic Medical Devices Not on file Insurance [facility] PPO EPO PPO EPO PPO EPO PPO EPO [facility] PPO EPO [facility] PPO EPO Care Teams Spring Crater Relationship Specialty Start Date End Date Rox Corrigan NP [address] [place] [phone] [email or web address] PCP - General Nurse Practitioner 10/12/23 Additional Source Comments The information contained in this document represents components of the legal health record. It is not the complete legal health record.[facility]
--- OUTSIDE RECORDS SUMMARY | 2025-04-25 18:33 | XMS_ITS | Encounter Summary ---
Author Organization [facility] Address [address] [place] [phone] Phone Care Team Providers Care Bias Cutting Machine Operator Vertical Name Role Phone Rox Corrigan NP Primary Care Provider Encounter Details Date Type Department Care Team (Latest Contact Info) Description 10/12/2023 Transcribe Orders Virtual Department [address] [place] [address] Reza Massey MD [address] [place] [phone] [email or web address] Abdominal pain, unspecified abdominal location (Primary Dx) Social History Tobacco Use Types Packs/Day Years [...] documented as of this encounter Results * US ABDOMEN LIMITED RIGHT UPPER QUADRANT (11/02/2023 7:45 AM EDT) Anatomical Region Laterality Modality Abdomen Ultrasound 11/02/2023 8:43 AM EDT Impressions 11/02/2023 8:44 AM EDT Unremarkable right upper quadrant ultrasound. Narrative 11/02/2023 8:44 AM EDT US ABDOMEN LIMITED RIGHT UPPER QUADRANT Referring clinician's provided indication for this examination in Epic: Outside Radiology Order; abdominal pain TECHNIQUE: US Abdominal limited right upper quadrant. COMPARISON: None FINDINGS: Liver: Normal. No focal lesions. Main Portal Vein: Patent with normal direction of flow. Gallbladder: Normal. No gallstones or gallbladder wall thickening. Ruiz's Sign: Negative Biliary: Normal. No intrahepatic or extrahepatic biliary ductal dilatation. The common bile duct measures 2 mm. Procedure Note Lazaro Ibanez MD, [facility] - 11/02/2023 US ABDOMEN LIMITED RIGHT UPPER QUADRANT Referring clinician's provided indication for this examination in Epic:Outside Radiology Order; abdominal pain TECHNIQUE: US Abdominal limited right upper quadrant. COMPARISON: None FINDINGS: Liver: Normal. No focal lesions. Main Portal Vein: Patent with normal direction of flow. Gallbladder: Normal. No gallstones or gallbladder wall thickening. Ruiz's Sign: Negative Biliary: Normal. No intrahepatic or extrahepatic biliary ductaldilatation. The common bile duct measures 2 mm. IMPRESSION: Unremarkable right upper quadrant ultrasound. Reza aMssey MD IMG US ABDOMEN Final Resu lt documented in this encounter Visit Diagnoses Diagnosis Abdominal pain, unspecified abdominal location- Primary Abdominal pain, unspecified abdominal location documented in this encounter Care Teams Bias Cutting Machine Operator Vertical Relationship Specialty Start Date End Date Rox Corrigan NP [address] [place] [id number] [email or web address] PCP - General Nurse Practitioner 10/12/23 documented as of this encounter Additional Source Comments The information contained in this document represents components of the legal health record. It is not the complete legal health record.[facility]
== END 2025-04-25 15:57 | disposition home or self-care (01) ==
LOC: HO.HUSH 15:01
PROVIDERS: Visit Provider Urology
DX: Z30.2 Encounter for sterilization (principal); R45.89 Other symptoms and signs involving emotional state
CPT/HCPCS: 55250

== ENCOUNTER → 2025-04-25 15:00 | Outpatient (BNVA) | payer BC, SELFPAY | PROVIDERS: Visit Provider Urology | DX: Z30.2 Encounter for sterilization (principal); R45.89 Other symptoms and signs involving emotional state | CPT/HCPCS: 55250; J2003 ==

== ENCOUNTER 2025-07-24 15:17 | Outpatient (AMB) | payer BC, SELFPAY ==
--- NOTE | 2025-07-24 15:35 | A.OFFVIS_ITS ---
Intake Visit Reasons: 3m semen analysis SET NOUA Intake Note: Reason for Visit: Semen Analysis Urology Medication: None Blood Thinners: None Imaging: None Labs: None Last PVR: None Dog Raiser Required: No Allergies Penicillins (PENICILLINS) Allergy (Unknown, Verified 07/24/25 15:38) RASH HPI Comments Details: Isidoro is a very pleasant 39-year-old male patient. He presents to the office today for - vasectomy follow-up No sperm seen on high-powered field evaluation Minimal issues following procedure P.r.n. follow-up Vasectomy procedure The patient presents for vasectomy procedure.? He is currently He has fathered 2 children, with a single partner The youngest child is 5 years old His partner is aware and permissive for a vasectomy Current form of control is her months Current employment is a retail tire sales manager at [employer] Surgical History (Updated 07/24/25 @ 15:39 by TAMY Romano) History of vasectomy Review of Systems Const Denies chills and Denies fever(s) Card Reports no additional complaints and Denies syncope Resp Denies cough GI Denies abdominal pain and Denies heartburn Reports as per HPI and Denies change in libido Neuro Denies syncope Psych Denies change in libido Endo Denies change in libido Physical Exam Const General: cooperative, healthy appearing, comfortable and no acute distress Orientation/consciousness: patient oriented x3 HEENT Face and sinus: Yes normal facial exam Mouth: moist mucous membranes Neck Neck: Yes normal visual inspection, Yes full ROM and Yes trachea midline Chest Chest palpation & inspection: normal inspection of the chest Resp Effort & Inspection: normal respiratory effort, able to speak in complete sentences and no respiratory distress GI Inspection: Yes normal to inspection Back/Spine/Pelvis Cervical Spine: normal cervical lordosis Thoracic/Lumbar Spine: thoracic and lumbar spine normal to inspection Skin General skin exam: no rashes or lesions noted Neuro General: patient oriented x3, gait normal, tone normal and moves all extremities Extrem General: Yes normal to inspection and Yes capillary refill normal Assessment & Plan Assessment & Plan (1) Anxiety about health: Code(s): R45.89 - Other symptoms and signs involving emotional state Category: Medical Plan P.r.n. follow-up Patient Instructions: This note is constructed using voice recognition software. While every effort has been made to ensure accuracy jewelry model maker errors may have been included. Imaging studies, laboratory and physical exam results were discussed and reviewed in detail. No major barriers to patient understanding were identified. An opportunity to ask questions regarding the treatment plan was provided. All questions were answered. The patient expressed understanding and agreement with the above treatment plan. The patient is aware they should contact our office by phone for worsening of their current condition or the appearance of new urologic symptoms. Compliance is encouraged with any medications and followup testing that is ordered. It is a privilege to participate in the urologic care of your patient. If you have any questions or concerns regarding treatment for the above conditions, or other urologic issues, please do not hesitate to contact me. The office telephone contact is [phone]. Sincerely, Dr Freddy Kemp MD, [facility] - Urology Compassionate Specialist Care for the Genitourinary System Coding Level of Care Code Est Pt Level 3 (06924) Diagnoses Anxiety about health R45.89
--- OUTSIDE RECORDS SUMMARY | 2025-07-24 19:35 | XMS_ITS | Encounter Summary ---
Author Organization [facility] Address [address] [place] [phone] Phone Care Team Providers Care Esthetician Permanent Makeup Artist Name Role Phone Pcp, Unknown Primary Care Provider Rox Heaton WINDOW [employer]IT [employer] CONDITIONING MECHANIC Primary Care Provider [phone] Encounter Details Date Type Department Care Team (Latest Contact Info) Description 09/09/2023 Transcribe Orders Virtual Department [address] [place] [address] Krissy Clay PA [address] [place] [address] Gastroesophageal reflux disease, unspecified whether esophagitis present [...] performed with sodium carbonate and barium. FINDINGS: Operating Room Aide view of the abdomen demonstrates a nonobstructive, [...] performed with sodium carbonate and barium. FINDINGS: Operating Room Aide view of the abdomen demonstrates a nonobstructive, [...] report originally createdby Rodney Cohen. Krissy CHACON [facility] Final Resul t documented in this encounter Visit Diagnoses Diagnosis Gastroesophageal reflux disease, unspecified whether esophagitis present- Primary Generalized abdominal pain Abdominal pain, generalized Gastroesophageal reflux disease, unspecified whether esophagitis present Generalized abdominal pain Abdominal pain, generalized documented in this encounter Care Teams Esthetician Permanent Makeup Artist Relationship Specialty Start Date End Date Pcp, Unknown PCP - General 07/07/23 10/11/23 Rox Corrigan NP [address] [place] [address] [email or web address] PCP - General Nurse Practitioner 10/12/23 documented as of this encounter Additional Source Comments The information contained in this document represents components of the legal health record. It is not the complete legal health record.[facility]
--- OUTSIDE RECORDS SUMMARY | 2025-07-24 19:35 | XMS_ITS | Encounter Summary ---
Author Organization [facility] Address [address] [place] [phone] Phone Care Team Providers Care Chief Controller Tower Name Role Phone Rox Corrigan NP Primary Care Provider [phone] Encounter Details Date Type Department Care Team (Latest Contact Info) Description 10/12/2023 Transcribe Orders Virtual Department [address] [place] [address] Reza Massey MD [address] [place] [id number] [email or web address] Abdominal pain, unspecified abdominal location (Primary Dx) [...] IMPRESSION: Unremarkable right upper quadrant ultrasound. Reza Massey MD IMG US ABDOMEN Final Resu lt documented in this encounter Visit Diagnoses Diagnosis Abdominal pain, unspecified abdominal location- Primary Abdominal pain, unspecified abdominal location documented in this encounter Care Teams Chief Controller Tower Relationship Specialty Start Date End Date Rox Corrigan NP [address] [place] [id number] [email or web address] PCP - General Nurse Practitioner 10/12/23 documented as of this encounter Additional Source Comments The information contained in this document represents components of the legal health record. It is not the complete legal health record.[facility]
--- OUTSIDE RECORDS SUMMARY | 2025-07-24 19:36 | XMS_ITS | Clinical Summary ---
Author Organization [facility] Address [address] [place] [address] Phone Care Team Providers Care Ear Pull Machine Operator Name Role Phone Rox Corrigan NP Primary Care Provider [phone] Allergies Active Allergy Reactions Criticality Noted Date [...] you interested in more education? Not on wie e 07/07/2023 Are you concerned about learning? [...] 2002 INFLUENZA VACCINE (#1) 2025 COVID-19 VACCINE (2024-2 6 season) 2025 SMOKING STATUS SCREENING (On ce [...] topic Medical Devices Not on file Insurance [facility] PPO EPO PPO EPO PPO EPO PPO EPO [facility] PPO EPO [facility] PPO EPO Care Teams Ear Pull Machine Operator Relationship Specialty Start Date End Date Rox Corrigan NP [address] [place] [phone] [email or web address] PCP - General Nurse Practitioner 10/12/23 Additional Source Comments The information contained in this document represents components of the legal health record. It is not the complete legal health record.[facility]
== END 2025-07-24 15:53 | disposition home or self-care (01) ==
LOC: HO.HUSH 15:17
PROVIDERS: Visit Provider Urology
DX: Z98.52 Vasectomy status (principal); R45.89 Other symptoms and signs involving emotional state
CPT/HCPCS: 99024